=== PATIENT | female | born 1995 | race Caucasian/White ===

== ENCOUNTER 2018-08-09 04:34 | Emergency (ER) | payer MEDICAID ==
[2018-08-09 05:30] LABS: URINE SOURCE CLEAN C
[2018-08-09 05:31] LABS: EOSINOPHILE ABSOLUTE 0.2 Th/cmm (0.1-0.4); HEMOGLOBIN 9.6 gm/dL (12-16); LYMPHOCYTE ABSOLUTE 1.6 Th/cmm (1.5-3.0); MEAN PLATELET VOLUME 8.5 fl; WHITE BLOOD COUNT 9.3 Th/cmm (4.8-10.8)
[2018-08-09 05:33] LABS: URINE BILIRUBIN NEGATIVE (NEGATIVE); URINE BLOOD NEGATIVE (NEGATIVE); URINE GLUCOSE (UA) NEGATIVE (NEGATIVE); URINE KETONE NEGATIVE (NEGATIVE); URINE LEUKOCYTE ESTERASE SMALL (NEGATIVE); URINE NITRATE NEGATIVE (NEGATIVE); URINE PROTEIN NEGATIVE (NEGATIVE); URINE UROBILINOGEN 0.2 E.U./dL (0.2 - 1.0)
[2018-08-09 05:33] LABS: % BASOPHILS 0.5 % (0.0-2.0); % LYMPHOCYTES 17.2 % (20.0-50.0); % MONOCYTES 12.1 % (2.0-10.0); % NEUTROPHILS 68.2 % (40.0-80.0); HEMATOCRIT 28.4 % (41.0-60); MEAN CELL VOLUME 92.8 fl (81-100); MEAN CORPUSCULAR HEMOGLOBIN 31.2 pg (27.0-31.0); MEAN CORPUSCULAR HGB CONC 33.6 pg (28.0-36.0); MONOCYTE ABSOLUTE 1.1 Th/cmm (0.3-1.0); NEUTROPHILE ABSOLUTE 6.4 Th/cmm (1.8-8.0); PLATELET COUNT 218 Th/cmm (150-400); RED BLOOD COUNT 3.06 Mil/cmm (3.80-5.10); RED CELL DISTRIBUTION WIDTH 13.3 % (11.5-20.0)
[2018-08-09 05:34] LABS: URINE CLARITY TURBID (CLEAR); URINE COLOR YELLOW; URINE MICROSCOPIC INDICATED? YES
[2018-08-09 05:36] LABS: URINE RBC 0-2 /hpf (0-5)
[2018-08-09 05:37] LABS: URINE BACTERIA MODERATE /hpf (NONE SEEN); URINE EPITHELIAL CELLS MODERATE /lpf (FEW)
--- NOTE | 2018-08-09 05:41 | ED Physician Chart ---
ED Chief Complaint/HPI - Patient Information Date Seen:: 08/02/18 Time Seen:: 05:10 Chief Complaint:: rt sided flank pain History of Present Illness:: 22 yr old female 26 wks with rt sided flank pain [place] like no fever headache or dizziness no dysuria vag d/c no leaking or vag bleeding Allergies:: Allergies Allergy/AdvReac Type Severity Reaction Status Date / Time No Known Allergies Allergy Verified 08/09/18 04:40 Vitals:: Vital Signs - 8 hr 08/09/18 04:40 Temp 99.0 F HR 90 RR 18 BP 102/69 O2 Sat % 98 ED Review of Systems - Review of Systems Skin: No skin lesions Head: No headache Eyes: No loss of vision ENT: No earache Neck: No neck pain Cardio Vascular: No chest pain Pulmonary: No SOB G/U: No dysuria Multimedia Author: No vaginal discharge, No abnormal vaginal bleed Musculoskeletal: No bone or joint pain Endocrine: No polyuria Hematopoietic: No bruising Allergic/Immuno: No urticaria Neurological: No syncope ED Past Medical History - Past Medical History Past Medical History: No significant medical hx Family Medical History - Family Member Mother History Unknown: Yes Ethnicity: Living Status: Still Living Hx Family Cancer: No Hx Family Coronary Artery Disease: No Hx Family Congestive Heart Failure: No Hx Family Hypertension: No Hx Family Stroke: No Hx Family Diabetes: No Hx Family Seizures: No Hx Family Dementia: No Hx Family AIDS: No Hx Family HIV: No Hx Family COPD: No Hx Family Hepatitis: No Hx Family Psychiatric Problems: No Hx Family Tuberculosis: No ED Physical Exam - Physical Examination General/Constitutional: Well-developed, well-nourished Head: Atraumatic Eyes: Lids, conjuctiva normal Skin: Nl inspection ENMT: External ears, nose nl Neck: Nontender Respiratory: Nl effort/Exclusion Cardio Vascular: No murmur, gallop, rubs Other GI comments:: rt flank tenderness rt cva tenderness Extremities: No tenderness or effusion Neuro/Psych: Alert/oriented ED Labs/Radiology/EKG Results - Lab Results Results: Laboratory Tests 08/09/18 08/09/18 05:15 05:20 WBC 9.3 RBC 3.06 L Hgb 9.6 L Hct 28.4 L MCV 92.8 MCH 31.2 H MCHC Differential 33.6 RDW 13.3 Plt Count 218 MPV 8.5 Neutrophils % 68.2 Lymphocytes % 17.2 L Monocytes % 12.1 H Eosinophils % 2.0 Basophils % 0.5 Urine Color YELLOW Urine Clarity TURBID H Urine pH 7.0 Ur Specific [place] 1.010 Urine Protein NEGATIVE Urine Glucose (UA) NEGATIVE Urine Ketones NEGATIVE Urine Blood NEGATIVE Urine Nitrate NEGATIVE Urine Bilirubin NEGATIVE Urine Urobilinogen 0.2 Ur Leukocyte Esterase SMALL H ED Septic Shock - . Is Septic Shock (SBP<90, OR Lactate>4 mmol\L) present?: No - <6hrs of presentation: Vital Signs: Vital Signs - 8 hr 08/09/18 04:40 Temp 99.0 F HR 90 RR 18 BP 102/69 O2 Sat % 98 ED Reassessment (Disposition) - Reassessment Reassessment:: rt flank tenderness - Diagnosis Diagnosis:: rt flank pain anemia of - Aftercare/Follow up Instructions Aftercare/Follow-Up Instructions:: Counseled pt regarding lab results/diagnosis & need follow up - Patient Disposition Discharge/Transfer:: Home Condition at Disposition:: Stable
[2018-08-09] MEDS ORDERED: cefTRIAXone 1 GM in Sodium Chloride 0.9% 50 ML IV ONE (05:42)
[2018-08-09] MEDS ORDERED: Sodium Chloride 0.9% 1,000 ML IV ONE (05:43)
[2018-08-09 06:05] LABS: ANION GAP 10.6 (7.0-16.0); BUN - UREA NITROGEN 6 mg/dL (7-25); CALCIUM SERUM 8.9 mg/dL (8.6-10.3); CARBON DIOXIDE 22.9 mEq/L (21.0-31.0); CHLORIDE 104 mEq/L (98-107); CREATININE - SERUM 0.4 mg/dL (0.6-1.2); GFR AFRICAN-AMERICAN > 60.0 ml/min (>90); GFR NON AFRICAN-AMERICAN > 60.0 ml/min; GLUCOSE 97 mg/dL (70-105); POTASSIUM SERUM 3.5 mEq/L (3.5-5.1); SODIUM SERUM 134 mEq/L (136-145)
--- NOTE | 2018-08-09 10:26 | Diagnostic Imaging Report ---
OB ultrasound, Limited History: Right flank and pelvic pain for 12 hours. Patient estimated 24 weeks and 1 day . Comparison: None Technique/procedure: Limited sonographic images of pelvis were obtained transabdominally. Findings: A single live intrauterine gestation is noted with cephalic presentation. The placenta is grade 2 and appears to be anterior. The heart rate was 144 bpm. Amniotic fluid index is 18.4, within the range of normal. The cervix is closed measuring 3.7 cm. The maternal right kidney measures 10.3 x 4.2 cm. There is mild to moderate right hydronephrosis. The maternal left kidney measures 12.0 x 5.7 cm. No hydronephrosis. No focal lesions identified. IMPRESSION: Single live intrauterine gestation with cephalic presentation. Amniotic fluid index within the range of normal. Mild to moderate maternal right hydronephrosis. Hydronephrosis was also noted after voiding. Clinical correlation and follow-up is recommended, given history. Placenta, anterior in position.
== END 2018-08-09 07:00 | disposition home or self-care (01) ==
LOC: ER 04:34
DX: O99.012 Anemia complicating pregnancy, second trimester (principal); D64.9 Anemia, unspecified; R10.9 Unspecified abdominal pain; Z3A.26 26 weeks gestation of pregnancy
CPT/HCPCS: 99285; 96365; 76815; 36415; 84702; 85025; 87086; 81001; 80048; 87040 ×2; J0696; J7030